=== PATIENT | male | born 1985 | race African-American/Black ===

== ENCOUNTER 2016-07-06 00:07 | Emergency (ER) | payer MEDICAID, SELFPAY ==
[~2016-07-06] VITALS: Ht 185.4 cm; Wt 102.1 kg
[2016-07-06 00:15] VITALS: BP 132/77
[2016-07-06] MEDS ORDERED: AZITHROMYCIN 250 MG TAB PO ONE (01:45)
[2016-07-06] MEDS ORDERED: cefTRIAXone SOD 250 MG VIAL (J0696) IM ONE (01:45)
== END 2016-07-06 02:30 | disposition home or self-care (01) ==
LOC: M ED 01:18
DX: Z20.2 Contact with and (suspected) exposure to infections with a predominantly sexual mode of transmission (principal); F17.210 Nicotine dependence, cigarettes, uncomplicated
CPT/HCPCS: 87491; 87591; 96372; 99281; J0696

== ENCOUNTER → 2017-01-09 | Outpatient (REF) | payer OTHER | LOC: M LAB REF 10:32 | PROVIDERS: ATTEND Physician Assistant Medical | DX: Z20.2 Contact with and (suspected) exposure to infections with a predominantly sexual mode of transmission (principal) ==